=== PATIENT | female | born 1950 | race Caucasian/White ===

== ENCOUNTER → 2017-10-09 | Outpatient (CLI) | payer MEDICARE, BC ==
--- NOTE | 2017-10-10 13:01 | MAM ---
EXAM DESCRIPTION: 3D Screening BILATERAL : Digital Mammography. CLINICAL HISTORY: 67 years Female SCREENING No complaints. Sister with breast cancer and remote family history of breast cancer.. COMPARISON: Baseline study at this facility. . No prior reports available. TECHNIQUE: Bilateral CC and MLO projection full-field images, 3-D tomosynthesis digital mammographic technique. Also bilateral synthesized CC/ MLO full-field images. CAD not utilized. FINDINGS: The breast parenchymal density pattern is: Scattered areas of fibroglandular density. No skin thickening or nipple retraction focal asymmetry in the upper and outer quadrant of the posterior third of the right breast and possible architectural distortion. Not associated with microcalcifications. Bilateral axillary lymph nodes. No focal, stellate mass or density, focal asymmetry , and no suspicious microcalcifications left breast. IMPRESSION: BI-RADS CATEGORY: 0 - INCOMPLETE- Need additional imaging evaluation. FOLLOW-UP: Recall for additional imagin-D digital spot compression of the region of interest upper outer quadrant right breast in the CC projection. 3-D tomosynthesis right breast full-field LM imaging. Followed by targeted right breast ultrasound. Written communication concerning the IMPRESSION and Follow-up, will be mailed to the patient and referring health care provider. Electronically signed by: Omer Garcia MD 10/10/2017 12:59 PM ENTRY ANALYST
== END | disposition home or self-care (01) ==
LOC: MAMMO 10:38
PROVIDERS: ATTEND Family Medicine
DX: Z12.31 Encounter for screening mammogram for malignant neoplasm of breast (principal)
CPT/HCPCS: 77063; G0202

== ENCOUNTER → 2018-01-30 | Outpatient (CLI) | payer MEDICARE, BC ==
--- NOTE | 2018-01-31 08:28 | MRI ---
EXAM DESCRIPTION: Knee,Left: MRI. CLINICAL HISTORY: KNEE PAIN COMPARISON: None. TECHNIQUE: Multiplanar, high-field MRI, multiple sequences, without contrast: Left knee. FINDINGS: Abnormal signal in the posterior horn of the medial meniscus extending to the superior articular surface of the posterior horn. Minimal increased signal in the anterior horn and body of the meniscus. Anterior horn is slightly subluxed outwardly from the medial compartment. Marginal spurs more medial than lateral. Minimal effusion in the medial compartment and displacing the medial collateral ligament. Minimal chondromalacia medial compartment cartilage but no subchondral edema. Minimal chondromalacia lateral compartment but no subchondral edema. Normal signal in the lateral meniscus. No lateral compartment effusion. Small marginal spurs. Medial collateral ligament and elements of the lateral collateral ligament complex are unremarkable. Anterior cruciate and posterior cruciate ligaments are intact. Minimal intra-cruciate space effusion. Fluid collection posterior medial soft tissues. Minimal chondromalacia medial and lateral patellar facets. Narrowing medial joint space and grade 4 osteochondrosis medial patellar facet and medial trochlea facet. Large spur more superiorly on the medial trochlea, small spur on the lateral trochlea. Patellar soft tissue restraints are intact. Minimal suprapatellar effusion with superior patellar plica. Normal signal in the quadriceps and patellar tendons. Prepatellar bursal edema. IMPRESSION: 1. Horizontal superior tear of the posterior horn of the medial meniscus. Chondromalacia, marginal spurs and minimal medial compartment space loss. Joint effusion. 2. Minimal chondromalacia lateral compartment. Collateral and cruciate ligaments are intact. Minimal intra-cruciate space effusion. 3. 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 Large spur on the medial trochlea and smaller spur on the lateral trochlea. 3. Electronically signed by: Omer Garcia MD 01/31/2018 8:27 AM MACHINE SPRAYER
== END ==
LOC: MRI 08:00
PROVIDERS: ATTEND Family Medicine
DX: S83.242A Other tear of medial meniscus, current injury, left knee, initial encounter (principal); M94.262 Chondromalacia, left knee; M93.862 Other specified osteochondropathies, left lower leg

== ENCOUNTER → 2018-02-23 | Outpatient (CLI) | payer MEDICARE, BC ==
--- NOTE | 2018-02-23 11:16 | RAD ---
EXAM DESCRIPTION: Pelvis CLINICAL HISTORY: 67 years Female, PAIN COMPARISON: None. TECHNIQUE: Single AP view of pelvis and hips FINDINGS: No fracture. Intact bones of the elbow ring and proximal femurs. Sacrum appears intact. Few phleboliths in the pelvis. No significant hip joint space narrowing. IMPRESSION: Negative for fracture or lytic lesion. Electronically signed by: Ariel Bhatia MD 02/23/2018 11:14 AM CDT
--- NOTE | 2018-02-23 11:17 | RAD ---
EXAM DESCRIPTION: Left knee, 4 radiographs CLINICAL HISTORY: Knee pain FINDINGS/ IMPRESSION: Mild joint space narrowing medial femorotibial. No focal osteochondral lesion. Tiny dorsal patellar osteophytes and lateral femorotibial osteophytes No joint effusion or diagnostic soft tissue abnormality Normal mineralization Electronically signed by: Rashard Khalil MD 02/23/2018 11:15 AM CDT
== END ==
LOC: RAD 08:57
PROVIDERS: ATTEND Orthopaedic Surgery
DX: M25.562 Pain in left knee (principal); M25.552 Pain in left hip

== ENCOUNTER → 2018-10-19 | Outpatient (CLI) | payer MEDICARE, BC ==
--- NOTE | 2018-10-20 16:29 | MAM ---
EXAM DESCRIPTION: 3D Screening BILATERAL : Digital Mammography. CLINICAL HISTORY: 68 years Female SCREEN . No complaints. Sister with breast cancer, remote family history of breast cancer. . Childbirth. Hysterectomy 11 years ago. Currently on HRT Lifetime risk of developing breast cancer (Tyrer-Cuzick model)(%): 11.1. COMPARISON: Bilateral screening digital breast tomosynthesis 10/09/2017. No prior reports available. TECHNIQUE: Bilateral CC and MLO projection full-field images, digital tomosynthesis mammographic technique. Bilateral digital 2-D full-field MLO images. CAD not available for tomosynthesis or 2-D images. FINDINGS: The breast parenchymal density pattern is: Scattered areas of fibroglandular density. No skin thickening or nipple retraction. Bilateral axillary lymph nodes. Bilateral axillary accessory breast tissue. Asymmetric fibroglandular breast tissue again noted in the upper outer quadrant of the right breast. No new focal, stellate mass or density, focal asymmetry , and no suspicious microcalcifications bilaterally. Stable mammograms compared to prior study. Taking into account, differences in mammographic technique. IMPRESSION: Benign exam. BIRAD CATEGORY: 2 BENIGN FINDINGS. RECOMMENDATIONS: FOLLOW UP: Routine digital bilateral mammographic screening, one year interval from September 2018. Written communication explaining the IMPRESSION and follow-up, will be mailed to the patient and referring health care provider. According to the [employer], yearly mammograms are recommended starting at age 40 and continuing as long as a woman is in good health. Any breast change noted on a breast self-exam should be reported promptly to the patient's healthcare provider. Breast MRI is recommended for women with an approximately 20-25% or greater lifetime risk of breast cancer, including women with a strong family history of breast or ovarian cancer and women who have been treated for Hodgkin's disease. A negative mammographic report should not delay tissue diagnosis in patients with significant clinical history or physical findings. Extremely dense breast tissue limits the sensitivity of digital mammography. Electronically signed by: Omer Garcia MD 10/20/2018 4:28 PM ARMORED CAR MESSENGER
== END ==
LOC: MAMMO 10:00
PROVIDERS: ATTEND Family Medicine
DX: Z12.31 Encounter for screening mammogram for malignant neoplasm of breast (principal)

== ENCOUNTER → 2019-04-27 | Outpatient (CLI) | payer MEDICARE, BC | LOC: GMAL 10:19 | PROVIDERS: ATTEND Family Medicine | DX: D51.3 Other dietary vitamin B12 deficiency anemia (principal); R53.83 Other fatigue; E55.9 Vitamin D deficiency, unspecified; I10 Essential (primary) hypertension; Z79.899 Other long term (current) drug therapy ==

== ENCOUNTER → 2019-11-01 | Outpatient (CLI) | payer MEDICARE, BC | LOC: GMAL 10:20 | PROVIDERS: ATTEND Family Medicine | DX: R53.83 Other fatigue (principal) ==

== ENCOUNTER → 2019-11-02 | Outpatient (CLI) | payer MEDICARE, BC ==
--- NOTE | 2019-11-05 17:40 | MAM ---
EXAM DESCRIPTION: 3D Screening BILATERAL : Digital Mammography. CLINICAL HISTORY: 69 years Female SCREENING . No complaints. No personal history of breast cancer. Sister with breast and ovarian cancer beginning age 48. Remote family history of breast cancer. Menarche age 14. Childbirth age 26. Possible age 57. Currently on HRT. Lifetime risk of developing breast cancer (Tyrer-Cuzick model)(%): 11.1. COMPARISON: Bilateral screening digital breast tomosynthesis 19 October 2018 and 09 October 2017. TECHNIQUE: Bilateral CC and MLO projection full-field images, digital tomosynthesis mammographic technique. Bilateral digital 2-D full-field MLO images. CAD not available for tomosynthesis or 2-D images. FINDINGS: The breast parenchymal density pattern is: Scattered areas of fibroglandular density. No skin thickening or nipple retraction. Fibroglandular tissues are more prominent in the upper outer quadrant of the right breast compared to the left. This focal asymmetry is stable since the prior study. No new focal, stellate mass or density, focal asymmetry , and no suspicious microcalcifications bilaterally. Stable mammograms compared to prior study. IMPRESSION: Benign exam. Stable focal asymmetry upper outer quadrant right breast since 2015. BIRAD CATEGORY: 2 BENIGN FINDINGS. RECOMMENDATIONS: FOLLOW UP: Routine digital bilateral mammographic screening, one year interval from October 2019. Written communication explaining the IMPRESSION and follow-up, will be mailed to the patient and referring health care provider. According to the [employer], yearly mammograms are recommended starting at age 40 and continuing as long as a woman is in good health. Any breast change noted on a breast self-exam should be reported promptly to the patient's healthcare provider. Breast MRI is recommended for women with an approximately 20-25% or greater lifetime risk of breast cancer, including women with a strong family history of breast or ovarian cancer and women who have been treated for Hodgkin's disease. A negative mammographic report should not delay tissue diagnosis in patients with significant clinical history or physical findings. Extremely dense breast tissue limits the sensitivity of digital mammography. Electronically signed by: Omer Garcia MD 11/05/2019 5:39 PM DRILLER OPERATOR
== END ==
LOC: MAMMO 15:31
PROVIDERS: ATTEND Family Medicine
DX: Z12.31 Encounter for screening mammogram for malignant neoplasm of breast (principal)

== ENCOUNTER → 2020-04-28 | Outpatient (CLI) | payer MEDICARE, BC | LOC: GMAL 10:35 | PROVIDERS: ATTEND Family Medicine | DX: D51.3 Other dietary vitamin B12 deficiency anemia (principal); E55.9 Vitamin D deficiency, unspecified; I10 Essential (primary) hypertension; Z79.899 Other long term (current) drug therapy ==

== ENCOUNTER → 2020-11-30 | Outpatient (CLI) | payer MEDICARE, BC ==
--- NOTE | 2020-12-04 10:14 | MAM ---
EXAM DESCRIPTION: 3D Screening BILATERAL : Digital Mammography. CLINICAL HISTORY: 70 years Female SCREENING MAMMO . No complaints. Female sibling with breast and ovarian cancer age 45. Remote family history of breast cancer. Menarche age 14. Childbirth age 26. Menopause age 57. Currently on HRT. Lifetime risk of developing breast cancer (Tyrer-Cuzick model)(%): 10.2. COMPARISON: Bilateral screening digital breast tomosynthesis October 2019 and September 2018 TECHNIQUE: Bilateral CC and MLO projection full-field images, digital tomosynthesis mammographic technique. Bilateral digital 2-D full-field MLO images. CAD available for 2-D images. FINDINGS: The breast parenchymal density pattern is: Scattered areas of fibroglandular density. Axillary nodes. Focal asymmetric tissue stable in the right upper quadrant posterior third of the breast consistent with fibroglandular tissue. Solitary microcalcifications. No skin thickening or nipple retraction No new focal, stellate mass or density, focal asymmetry , and no suspicious microcalcifications bilaterally. Stable mammograms compared to prior study. IMPRESSION: Benign exam. BIRAD CATEGORY: 2 BENIGN FINDINGS. RECOMMENDATIONS: FOLLOW UP: Routine digital bilateral mammographic screening, one year interval from November 2019. Written communication explaining the IMPRESSION and follow-up, will be mailed to the patient and referring health care provider. According to the [employer], yearly mammograms are recommended starting at age 40 and continuing as long as a woman is in good health. Any breast change noted on a breast self-exam should be reported promptly to the patient's healthcare provider. Breast MRI is recommended for women with an approximately 20-25% or greater lifetime risk of breast cancer, including women with a strong family history of breast or ovarian cancer and women who have been treated for Hodgkin's disease. A negative mammographic report should not delay tissue diagnosis in patients with significant clinical history or physical findings. Extremely dense breast tissue limits the sensitivity of digital mammography. Electronically signed by: Omer Garcia MD 12/04/2020 10:12 AM [facility]
== END ==
LOC: MAMMO 11:12
PROVIDERS: ATTEND Family Medicine
DX: Z12.31 Encounter for screening mammogram for malignant neoplasm of breast (principal)